=== PATIENT | female | born 1995 | race Caucasian/White ===

== ENCOUNTER 2023-05-26 14:37 | Emergency (ER) | payer BC, OTHER ==
[~2023-05-26] VITALS: Ht 157.5 cm; Wt 59.8 kg
[~2023-05-26 14:37] MED LIST: ACCUTANE; CYCL5TAB11 PO
--- NOTE | 2023-05-26 16:54 | NUR ---
pt states she has been taking phentermine for the past [address] Sosa. Pt states she keeps feeling numbness and tingling in her hands and get hot and cols sweats pt states her instructor at [facility] took her vitals and they were dropping so they called the ambulance here
[2023-05-26 17:44] LABS: MEAN PLATELET VOLUME 7.9 FL (7.4-10.4)
[2023-05-26 17:46] LABS: BASOPHILS % (AUTO) 0.4 % (0-1); EOSINOPHILS % (AUTO) 0.3 % (0-6); HEMATOCRIT 39.8 % (35.0-45.0); HEMOGLOBIN 13.2 g/dl (12.0-16.0); LYMPHOCYTES # (AUTO) 1.3 X10'3 (1.1-4.8); LYMPHOCYTES % (AUTO) 13.6 % (21-51); MEAN CORPUSCULAR HEMOGLOBIN 26.8 PG (27.0-31.0); MEAN CORPUSCULAR HGB CONC 33.1 g/dL (33.0-36.5); MEAN CORPUSCULAR VOLUME 80.8 FL (78-98); MONOCYTES # (AUTO) 0.4 X10'3 (0-0.9); MONOCYTES % (AUTO) 4.3 % (2-12); NEUTROPHILS % (AUTO) 81.4 % (42-75); PLATELET COUNT 297 X10'3 (140-440); RED BLOOD COUNT 4.93 X10'6 (4.20-5.60); RED CELL DISTRIBUTION WIDTH 18.7 % (11.5-14.5); WHITE BLOOD COUNT 9.8 X10'3 (4.5-11.0)
[2023-05-26 17:53] LABS: ALANINE AMINOTRANSFERASE 12 U/L (12-78); ALBUMIN/GLOBULIN RATIO 1.2 (1.1-1.5); ALKALINE PHOSPHATASE 48 IU/L (46-116); ANION GAP 8 (8-16); ASPARTATE AMINO TRANSFERASE 12 U/L (10-37); BILIRUBIN,TOTAL 0.4 MG/DL (0.1-1.0); BLOOD UREA NITROGEN 10 MG/DL (7-18); BUN/CREATININE RATIO 13.2 (10.0-20.0); CALCIUM 9.3 MG/DL (8.5-10.1); CHLORIDE 102 MMOL/L (99-107); CREATININE 0.76 MG/DL (0.40-0.90); GLUCOSE 105 MG/DL (70-104); POTASSIUM 3.7 MMOL/L (3.5-5.1); SODIUM 138 MMOL/L (135-145); TOTAL CARBON DIOXIDE 27.9 MMOL/L (24-32); TOTAL PROTEIN 7.4 G/DL (6.4-8.2); eCRCL 88 ML/MIN; eGFR > 90 ML/MIN
[2023-05-26 18:00] LABS: MAGNESIUM 2.2 MG/DL (1.5-2.4); PRO BRAIN NATRIURETIC PEPTIDE < 30 PG/ML (0-125)
[2023-05-26 18:23] LABS: ANISOCYTOSIS 2+; PLATELET ESTIMATE NORMAL
[2023-05-26 18:24] LABS: BURR CELLS 1+
[2023-05-26 18:25] LABS: ELLIPTOCYTES FEW; POIKILOCYTOSIS 1+
[2023-05-26] MEDS ORDERED: normal saline 1000ml 1,000 ML IV ONE (18:35)
[2023-05-26 18:47] LABS: BILIRUBIN,URINE NEGATIVE (Neg); COLOR,URINE YELLOW (Yellow); GLUCOSE, URINE NEGATIVE (Neg); KETONES,URINE TRACE mg/dl (Neg); LEUKOCYTE ESTERASE ,URINE NEGATIVE (Neg); NITRITES, URINE NEGATIVE (Neg); OCCULT BLOOD,URINE LARGE (Neg); PROTEIN,URINE NEGATIVE (Neg); UROBILINOGEN,URINE 0.2 E.U/dL (0.2-1.0)
[2023-05-26 18:48] LABS: URINE HCG NEGATIVE (NEG)
[2023-05-26 18:51] LABS: UA COLLECTION TYPE CLN CATCH MIDSTREAM
[2023-05-26 18:52] LABS: CLARITY,URINE SLIGHTLY CLOUDY (Clear)
[2023-05-26 18:54] LABS: BACTERIA,URINE NONE SEEN /HPF (Neg); MUCUS STRANDS FEW /LPF (Neg); SQUAMOUS EPITHELIAL CELL,UR FEW /LPF (FEW); TRANSITIONAL EPI CELLS,URINE FEW /HPF; WBC,URINE 0-4 /HPF (0-4)
[2023-05-26 19:56] VITALS: BP 118/78; PULSE 88; RESP 12; TEMP 98; O2SAT 100
--- NOTE | 2023-05-27 04:30 | NUR ---
Unable to verify accuracy of GROUND TRANSPORTATION OPERATOR assessment - discharged prior to my arrival and not reviewed by offgoing fire extinguisher charger.
== END 2023-05-26 19:58 | disposition home or self-care (01) ==
LOC: ER 14:38
DX: R55 Syncope and collapse (principal); E86.0 Dehydration
CPT/HCPCS: 36415; 71045; 80053; 81001; 81025; 83735; 83880; 84484; 85008; 85025; 93005; 96360; 99285; J7030